=== PATIENT | male | born 1980 | race Caucasian/White ===

== ENCOUNTER 2023-03-28 17:12 | Emergency (ER) | payer BC ==
[~2023-03-28] VITALS: Ht 177.8 cm; Wt 73.0 kg
[2023-03-28 17:23] VITALS: BP 137/80; PULSE 79; RESP 18; TEMP 98.8; O2SAT 99
[2023-03-28] MEDS ORDERED: HYDR-4001 MT (19:51)
== END 2023-03-28 20:46 | disposition home or self-care (01) ==
LOC: ER 17:12
DX: S82.831A Other fracture of upper and lower end of right fibula, initial encounter for closed fracture (principal); V89.2XXA Person injured in unspecified motor-vehicle accident, traffic, initial encounter; Y93.89 Activity, other specified; Y92.89 Other specified places as the place of occurrence of the external cause; Y99.8 Other external cause status
CPT/HCPCS: 73100; 73590; 73600; 29515; 99284; Z7610 ×2